=== PATIENT | female | born 2000 | race Caucasian/White ===

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

== ENCOUNTER 2022-01-25 14:24 | Emergency (ER) | payer OTHER ==
[2022-01-25] MEDS ORDERED: SODIUM CHLORIDE 0.9% 1,000 ML IV STA (15:02)
[2022-01-25] MEDS ORDERED: ONDANSETRON 4 MG/2 ML VIAL IVP STA (15:03)
--- NOTE | 2022-01-25 15:03 | ED Physician Documentation ---
History of Present Illness - Stated complaint Stated Complaint: THROAT PX/CONGESTED - Chief complaint Chief Complaint: Heent - History obtained from History obtained from: Patient - History of Present Illness Timing: How many days ago (3) Pain level max: 4 Pain level now: 4 - Additonal information Additional information: Patient is a 21-year-old female who presents to the emergency department complaining of vomiting for the past 3 days. Intermittent headaches as well. Mild abdominal cramping. No diarrhea. Worse with eating and drinking. Nothing makes it better. No urinary symptoms. No vaginal bleeding or discharge. Review of Systems Constitutional: denies: Chills Nose: reports: Rhinorrhea / runny nose. 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 : Chronic bladder infection HEENT: None Psych: None Musculoskeletal: None Derm: None Other Past Medical History: IBS - Past Surgical History Past Surgical History: Yes General: Colonoscopy, EGD - Present Medications Home Medications: Ambulatory Orders Medication Instructions Recorded Confirmed Ondansetron Odt [Zofran] 4 mg TL Q6H PRN #10 tablet 01/25/22 Promethazine [Phenergan] 25 mg PO Q6H PRN #10 tab 01/25/22 - Allergies Allergies/Adverse Reactions: Allergies Allergy/AdvReac Type Severity Reaction Status Date / Time Latex, Natural Rubber Allergy Rash Verified 01/25/22 14:37 - Social History Does the pt smoke?: No Smoking Status: Never smoker Does the pt drink ETOH?: No Does the pt have substance abuse?: No - Immunizations Immunizations are current?: Yes - POLST Patient has POLST: No PD ED PE NORMAL - Vitals Vital signs reviewed: Yes - General General: Alert and oriented X 3, No acute distress, Well developed/nourished - HEENT HEENT: PERRL, Moist mucous membranes, Pharynx benign - Neck Neck: Supple, no meningeal sign - Cardiac Cardiac: RRR, Strong equal pulses - Respiratory Respiratory: No respiratory distress, Clear bilaterally - Abdomen Abdomen: Soft, Non tender, Non distended - Back Back: No spinal TTP - Derm Derm: Warm and dry, No rash - Extremities Extremities: No edema - Neuro Neuro: Alert and oriented X 3 - Psych Psych: Normal mood, Normal affect Results - Vitals Vitals: Vital Signs - 24 hr 01/25/22 01/25/22 14:37 16:49 Temperature 36.6 C 37 C Heart Rate 87 67 Respiratory 18 16 Rate Blood Pressure 129/62 125/57 L O2 Saturation 97 100 Oxygen O2 Source Room air - Labs Labs: Laboratory Tests 01/25/22 01/25/22 01/25/22 14:45 14:45 15:09 WBC 2.7 L RBC 4.44 Hgb 12.2 Hct 36.4 L MCV 82.0 MCH 27.5 MCHC 33.5 RDW 12.9 Plt Count 187 MPV 10.1 Neut # (Auto) Not Reportable Lymph # (Auto) Not Reportable Dukes # (Auto) Not Reportable Eos # (Auto) Not Reportable Baso # (Auto) Not Reportable Absolute Nucleated RBC Not Reportable Total Counted 100 Band Neuts % (Manual) 0 Reactive Lymphs % (Man) 8 Abnorm Lymph % (Manual) 0 Nucleated RBC % Not Reportable Neutrophils # (Manual) 1.5 Lymphocytes # (Manual) 0.7 L Monocytes # (Manual) 0.4 Eosinophils # (Manual) 0.0 Basophils # (Manual) 0.1 Differential Comment MANUAL DIFFERENTIAL WBC Morphology NORMAL APPEARANCE Platelet Estimate NORMAL (130-450,000) Platelet Morphology NORMAL APPEARANCE RBC Morph Micro Appear NORMAL APPEARANCE Sodium Potassium Chloride Carbon Dioxide Anion Gap BUN Creatinine Estimated GFR (MDRD) Glucose Calcium Total Bilirubin AST ALT Alkaline Phosphatase Total Protein Albumin Globulin Albumin/Globulin Ratio Lipase Urine Color Urine Clarity Urine pH Ur Specific [place] Urine Protein Urine Glucose (UA) Urine Ketones Urine Occult Blood Urine Nitrite Urine Bilirubin Urine Urobilinogen Ur Leukocyte Esterase Urine RBC Urine WBC Ur Squamous Epith Cells Amorphous Sediment Urine Bacteria Ur Microscopic Review Urine Culture Comments Urine HCG, Qual Nasal Adenovirus (PCR) NOT DETECTED Nasal B. parapertussis DNA (PCR) NOT DETECTED Nasal Coronavir 229E PCR NOT DETECTED Nasal Coronavir HKU1 PCR NOT DETECTED Nasal Coronavir NL63 PCR NOT DETECTED Nasal Coronavir OC43 PCR NOT DETECTED Nasal Enterovir/Rhinovir PCR DETECTED A Nasal Influenza B PCR NOT DETECTED Nasal Influenza A PCR NOT DETECTED Nasal Parainfluen 1 PCR NOT DETECTED Nasal Parainfluen 2 PCR NOT DETECTED Nasal Parainfluen 3 PCR NOT DETECTED Nasal Parainfluen 4 PCR NOT DETECTED Nasal RSV (PCR) NOT DETECTED Nasal B.pertussis DNA PCR NOT DETECTED Nasal C.pneumoniae (PCR) NOT DETECTED Chin Human Metapneumo PCR NOT DETECTED Nasal M.pneumoniae (PCR) NOT DETECTED Nasal SARS-CoV-2 (PCR) NOT DETECTED Infectious Dukes Assay Group A Strep Rapid Negative 01/25/22 01/25/22 01/25/22 15:09 15:09 16:11 WBC RBC Hgb Hct MCV MCH MCHC RDW Plt Count MPV Neut # (Auto) Lymph # (Auto) Dukes # (Auto) Eos # (Auto) Baso # (Auto) Absolute Nucleated RBC Total Counted Band Neuts % (Manual) Reactive Lymphs % (Man) Abnorm Lymph % (Manual) Nucleated RBC % Neutrophils # (Manual) Lymphocytes # (Manual) Monocytes # (Manual) Eosinophils # (Manual) Basophils # (Manual) Differential Comment WBC Morphology Platelet Estimate Platelet Morphology RBC Morph Micro Appear Sodium 138 Potassium 3.8 Chloride 106 Carbon Dioxide 24 Anion Gap 8.0 BUN 9 Creatinine 0.6 Estimated GFR (MDRD) 129 Glucose 94 Calcium 9.2 Total Bilirubin 0.7 AST 19 ALT 15 Alkaline Phosphatase 61 Total Protein 7.2 Albumin 4.3 Globulin 2.9 Albumin/Globulin Ratio 1.5 Lipase 29 Urine Color YELLOW Urine Clarity CLOUDY Urine pH 7.0 Ur Specific [place] 1.015 Urine Protein NEGATIVE Urine Glucose (UA) NEGATIVE Urine Ketones NEGATIVE Urine Occult Blood SMALL H Urine Nitrite NEGATIVE Urine Bilirubin NEGATIVE Urine Urobilinogen 0.2 (NORMAL) Ur Leukocyte Esterase NEGATIVE Urine RBC 6-10 H Urine WBC 0-3 Ur Squamous Epith Cells FEW Squamous Amorphous Sediment Moderate Urine Bacteria Rare Ur Microscopic Review INDICATED Urine Culture Comments NOT INDICATED Urine HCG, Qual NEGATIVE Nasal Adenovirus (PCR) Nasal B. parapertussis DNA (PCR) Nasal Coronavir 229E PCR Nasal Coronavir HKU1 PCR Nasal Coronavir NL63 PCR Nasal Coronavir OC43 PCR Nasal Enterovir/Rhinovir PCR Nasal Influenza B PCR Nasal Influenza A PCR Nasal Parainfluen 1 PCR Nasal Parainfluen 2 PCR Nasal Parainfluen 3 PCR Nasal Parainfluen 4 PCR Nasal RSV (PCR) Nasal B.pertussis DNA PCR Nasal C.pneumoniae (PCR) Chin Human Metapneumo PCR Nasal M.pneumoniae (PCR) Nasal SARS-CoV-2 (PCR) Infectious Dukes Assay NEGATIVE Group A Strep Rapid PD MEDICAL DECISION MAKING - ED course Complexity details: reviewed results, re-evaluated patient, considered differential, d/w patient, d/w family ED course: 21-year-old female with rhinovirus/enterovirus infection. Patient is very well- appearing, nontoxic. Tolerating p.o. without difficulty. Feels better after IV fluids. We will place on antinausea medication for home. Nausea and vomiting resolved. Abdomen is soft, nontender nondistended on serial examination. Patient counseled regarding signs and symptoms for which I believe and urgent re-evaluation would be necessary. Patient with good understanding of and agreement to plan and is comfortable going home at this time This document was made in part using voice recognition software. While efforts are made to proofread this document, sound alike and grammatical errors may occur. Departure - Departure Disposition: 01 Home, Self Care Clinical Impression: Enterovirus infection, Rhinovirus Vomiting Qualifiers: Vomiting type: unspecified Nausea presence: with nausea Qualified Code(s): R11.2 - Nausea with vomiting, unspecified Condition: Good Instructions: ED Viral Syndrome, ED Nausea Vomiting Follow-Up: your,doctor in 1 week [Other] Prescriptions: Promethazine [Phenergan] 25 mg PO Q6H PRN #10 tab PRN Reason: Nausea / Vomiting Ondansetron Odt [Zofran] 4 mg TL Q6H PRN #10 tablet PRN Reason: Nausea / Vomiting Comments: You have tested positive for rhinovirus/enterovirus today. Please follow-up with your doctor for further care. Drink plenty of fluids and rest. Your prescriptions were sent to [facility] in [place]. Forms: Activity restrictions Discharge Date/Time: 01/25/22 16:50
[2022-01-25 15:09] LABS: RAPID STREP SCREEN Negative (Negative)
[2022-01-25 15:14] LABS: BASOPHILS % (AUTO) 0.7 %; EOSINOPHILS % (AUTO) 1.5 %; HCT - HEMATOCRIT 36.4 % (37.0-47.0); HGB - HEMOGLOBIN 12.2 g/dL (12.0-16.0); LYMPHOCYTES % (AUTO) 27.2 %; MEAN CORPUSCULAR HEMOGLOBIN 27.5 pg (27.0-31.0); MEAN CORPUSCULAR HGB CONC 33.5 g/dL (32.0-36.0); MEAN PLATELET VOLUME 10.1 fL (7.9-10.8); MONOCYTES % (AUTO) 16.8 %; NEUTROPHILS % (AUTO) 53.8 %; PLT - PLATELET COUNT 187 10^3/uL (130-450); RED BLOOD COUNT 4.44 10^6/uL (4.20-5.40); RED CELL DISTRIBUTION WIDTH 12.9 % (12.0-15.0); WHITE BLOOD COUNT 2.7 x10^3/uL (4.8-10.8)
[2022-01-25 15:17] LABS: ABNORMAL LYMPHS % (MANUAL) 0 %; BAND NEUTROPHILS % (MANUAL) 0 %
[2022-01-25 15:28] LABS: ALBUMIN 4.3 g/dL (3.2-5.5); ALBUMIN/GLOBULIN RATIO 1.5 (1.0-2.2); BILIRUBIN,TOTAL 0.7 mg/dL (0.2-1.0); CALCIUM 9.2 mg/dL (8.5-10.3); CREATININE 0.6 mg/dL (0.4-1.0); POTASSIUM 3.8 mmol/L (3.5-5.0); TOTAL PROTEIN 7.2 g/dL (6.7-8.2)
[2022-01-25 15:37] LABS: BASOPHILS # (MANUAL) 0.1 10^3/uL (0-0.1); BASOPHILS % (MANUAL) 5 %; DIFFERENTIAL COMMENT MANUAL DIFFERENTIAL; LYMPHOCYTES # (MANUAL) 0.7 10^3/uL (1.5-3.5); LYMPHOCYTES % (MANUAL) 18 %; MONOCYTES # (MANUAL) 0.4 10^3/uL (0.0-1.0); NEUTROPHILS # (MANUAL) 1.5 10^3/uL (1.5-6.6); PLATELET ESTIMATE, MANUAL NORMAL (130-450,000) (NORMAL); PLATELET MORPHOLOGY NORMAL APPEARANCE (NORMAL); RBC MORPHOLOGY (MULTIPLE) NORMAL APPEARANCE (NORMAL); REACTIVE LYMPHS % (MANUAL) 8 %; WBC MORPHOLOGY (MULTIPLE) NORMAL APPEARANCE (NORMAL)
[2022-01-25 15:50] LABS: INFECTIOUS MONONUCLEOSIS NEGATIVE (Negative)
[2022-01-25 16:03] LABS: B. PARAPERTUSSIS- RESP PCR PAN NOT DETECTED; B. PERTUSSIS- RESP PCR PANEL NOT DETECTED; C. PNEUMONIAE- RESP PCR PANEL NOT DETECTED; CORONAVIRUS 229E-RESP PCR NOT DETECTED; CORONAVIRUS HKU1-RESP PCR NOT DETECTED; CORONAVIRUS NL63-RESP PCR NOT DETECTED; CORONAVIRUS OC43-RESP PCR NOT DETECTED; HUMAN METAPNEUMOVIRUS NOT DETECTED; INFLUENZA A- RESP PCR PANEL NOT DETECTED; INFLUENZA B - RESP PCR PANEL NOT DETECTED; M. PNEUMONIAE- RESP PCR PANEL NOT DETECTED; PARAINFLUENZA VIRUS 1 NOT DETECTED; PARAINFLUENZA VIRUS 2 NOT DETECTED; PARAINFLUENZA VIRUS 3 NOT DETECTED; PARAINFLUENZA VIRUS 4 NOT DETECTED; RHINOVIRUS/ENTEROVIRUS DETECTED; RSV- RESP PCR PANEL NOT DETECTED; SARS-CoV-2 -RESP PCR PANEL NOT DETECTED
[2022-01-25 16:22] LABS: BILIRUBIN,URINE NEGATIVE (NEGATIVE); GLUCOSE, URINE (UA) NEGATIVE (NEGATIVE); KETONES,URINE (UA) NEGATIVE (NEGATIVE); LEUKOCYTE ESTERASE, URINE NEGATIVE (NEGATIVE); NITRITE,URINE NEGATIVE (NEGATIVE); OCCULT BLOOD,URINE SMALL (NEGATIVE); PROTEIN,URINE NEGATIVE (NEGATIVE); UROBILINOGEN,URINE 0.2 (NORMAL) E.U./dL (NORMAL)
[2022-01-25 16:23] LABS: CLARITY,URINE CLOUDY (CLEAR)
[2022-01-25 16:24] LABS: HCG UR QUAL NEGATIVE
[2022-01-25 16:29] LABS: AMORPHOUS SEDIMENT,UR Moderate /LPF; BACTERIA,URINE Rare /HPF (None Seen); SQUAMOUS EPITHELIAL CELL,UR FEW Squamous (<= Few); WBC,URINE 0-3 /HPF (0-5)
[2022-01-25 16:50] VITALS: BP 125/57
== END 2022-01-25 16:50 | disposition home or self-care (01) ==
LOC: ED 14:24
DX: B34.1 Enterovirus infection, unspecified (principal); B34.8 Other viral infections of unspecified site
CPT/HCPCS: 36415; 80053; 81001; 81003; 81025; 83690; 85025; 86308; 87070; 87086; 87430; 87633; 96374; 99282

== ENCOUNTER 2022-02-10 19:11 | Emergency (ER) | payer OTHER ==
[2022-02-10 19:18] VITALS: BP 113/47
--- NOTE | 2022-02-10 19:37 | ED Physician Documentation ---
PD HPI LOWER EXT INJURY - Stated complaint Stated Complaint: BILATERAL LEGS SCRATCH - Chief complaint Chief Complaint: Wound - History obtained from History obtained from: Patient - Additional information Additional information: 22-year-old woman [place], she was in shorts and hike through a lot of bushes. She has burning on both lower extremities where she contacted plants. She does not know specifically what caused it. 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 : Chronic bladder infection HEENT: None Psych: None Musculoskeletal: None Derm: None - Past Surgical History Past Surgical History: Yes General: Colonoscopy, EGD - Present Medications Home Medications: Ambulatory Orders Medication Instructions Recorded Confirmed No Known Home Medications 02/10/22 02/10/22 - Allergies Allergies/Adverse Reactions: Allergies Allergy/AdvReac Type Severity Reaction Status Date / Time Latex, Natural Rubber Allergy Rash Verified 02/10/22 19:18 - Social History Does the pt smoke?: No Smoking Status: Never smoker Does the pt drink ETOH?: No Does the pt have substance abuse?: No - Immunizations Immunizations are current?: Yes - POLST Patient has POLST: No PD ED PE NORMAL - Vitals Vital signs reviewed: Yes - General General: Alert and oriented X 3, No acute distress - Derm Derm: Other (Some inflamed red areas on both legs, not consistent with a contact dermatitis.) - Neuro Neuro: Alert and oriented X 3, Normal speech Results - Vitals Vitals: Vital Signs - 24 hr 02/10/22 19:15 Temperature 36.7 C Heart Rate 92 Respiratory 16 Rate Blood Pressure 113/47 L O2 Saturation 100 Oxygen O2 Source Room air PD MEDICAL DECISION MAKING - ED course ED course: She went hiking in this area and now has inflamed areas on both legs. I showed her pictures of stinging katarina which are really the only thing around here that can do this and she identified them as the inciting agent likely. Discussed with her the natural Course and conservative treatment of this given that it is not a contact dermatitis. She declined Analgesia. Departure - Departure Disposition: 01 Home, Self Care Clinical Impression: Nettle sting Condition: Good Record reviewed to determine appropriate education?: Yes Comments: As discussed, this is most consistent with stinging katarina, a common plant that grows around here. Learn to identify it so you can avoid it on future hikes. Thankfully, unlike poison oak/poison argenis this is not a contact dermatitis so goes away much faster. Conservative care with cool compresses and calamine lotion are appropriate. Return for new or worsening symptoms.
== END 2022-02-10 19:41 | disposition home or self-care (01) ==
LOC: ED 19:11
DX: M79.662 Pain in left lower leg (principal); M79.661 Pain in right lower leg; T63.791A Toxic effect of contact with other venomous plant, accidental (unintentional), initial encounter
CPT/HCPCS: 99281; 99282

== ENCOUNTER 2022-04-11 04:22 | Emergency (ER) | payer OTHER ==
[2022-04-11] MEDS ORDERED: ONDANSETRON 4 MG/2 ML VIAL IM STA (04:45)
--- NOTE | 2022-04-11 04:51 | ED Physician Documentation ---
History of Present Illness - Stated complaint Stated Complaint: N/V/D, COUGH - Chief complaint Chief Complaint: General - History obtained from History obtained from: Patient - Additonal information Additional information: The patient comes to the emergency department with chief complaint of vomiting for 3 weeks. She states that she was first ago March 19 as. She at that time had a runny nose and cough and a little bit of a chill and also a couple days later, began to have nausea and vomiting. The patient states that got a little better after that but then seemed to worsen again. The patient states she will get what feels like a migraine at the base of her skull and then pain shoots down her neck into her chest and makes her throat feel tight. She then vomits. The patient denies a history of migraines. No head injuries. No neurologic symptoms. The patient does note that she is also had her second. In the last 2 and half weeks. She states she had a period from March 24 to March 31. She states that she then started bleeding again couple of days ago. 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 She also has not attempted to make any contact with her primary care physician. 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 Review of Systems Ten Systems: 10 systems reviewed and negative Constitutional: reports: Reviewed and negative Eyes: reports: Reviewed and negative Ears: reports: Reviewed and negative Nose: reports: Congestion Throat: reports: Reviewed and negative Cardiac: reports: Reviewed and negative Respiratory: reports: Cough GI: reports: Nausea, Vomiting, Diarrhea : reports: Reviewed and negative Skin: reports: Reviewed and negative Musculoskeletal: reports: Reviewed and negative Neurologic: reports: Reviewed and negative Psychiatric: reports: Reviewed and negative Endocrine: reports: Reviewed and negative Immunocompromised: reports: Reviewed and negative PD PAST MEDICAL HISTORY - Past Medical History Cardiovascular: None Respiratory: None Neuro: None Endocrine/Autoimmune: None 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 : Chronic bladder infection HEENT: None Psych: None Musculoskeletal: None Derm: None - Past Surgical History Past Surgical History: Yes General: Colonoscopy, EGD - Present Medications Home Medications: Ambulatory Orders Medication Instructions Recorded Confirmed Ferrous Sulfate [Feosol] 650 mg PO DAILY 04/11/22 04/11/22 Ondansetron Odt [Zofran] 4 mg TL Q6H PRN #10 tablet 12/13/22 - Allergies Allergies/Adverse Reactions: Allergies Allergy/AdvReac Type Severity Reaction Status Date / Time Latex, Natural Rubber Allergy Rash Verified 04/11/22 04:29 - Social History Does the pt smoke?: No Smoking Status: Never smoker Does the pt drink ETOH?: No Does the pt have substance abuse?: No - Immunizations Immunizations are current?: Yes - POLST Patient has POLST: No PD ED PE NORMAL - Vitals Vital signs reviewed: Yes - General General: Alert and oriented X 3, No acute distress, Well developed/nourished - HEENT HEENT: Atraumatic, PERRL, EOMI, Moist mucous membranes - Neck Neck: Supple, no meningeal sign - Cardiac Cardiac: RRR, No murmur, Strong equal pulses - Respiratory Respiratory: No respiratory distress, Clear bilaterally - Abdomen Abdomen: Soft, Non tender, Non distended - Derm Derm: Normal color, Warm and dry, No rash - Extremities Extremities: No deformity, No edema - Neuro Neuro: Alert and oriented X 3 - Psych Psych: Normal mood, Normal affect Results - Vitals Vitals: Vital Signs - 24 hr 04/11/22 04/11/22 04:25 05:07 Temperature 36.9 C Heart Rate 93 63 Respiratory 18 18 Rate Blood Pressure 123/71 119/68 O2 Saturation 98 98 Oxygen O2 Source Room air - Labs Labs: Laboratory Tests 04/11/22 04/11/22 04:42 05:02 Sodium 135 Potassium 4.0 Chloride 102 Carbon Dioxide 26 Anion Gap 7.0 BUN 10 Creatinine 0.6 Estimated GFR (MDRD) 127 Glucose 98 Calcium 9.2 Nasal Adenovirus (PCR) NOT DETECTED Nasal B. parapertussis DNA (PCR) NOT DETECTED Nasal Coronavir 229E PCR NOT DETECTED Nasal Coronavir HKU1 PCR NOT DETECTED Nasal Coronavir NL63 PCR NOT DETECTED Nasal Coronavir OC43 PCR NOT DETECTED Nasal Enterovir/Rhinovir PCR NOT DETECTED Nasal Influenza A H3 PCR DETECTED A Nasal Influenza B PCR NOT DETECTED Nasal Influenza A PCR NOT DETECTED Nasal Parainfluen 1 PCR NOT DETECTED Nasal Parainfluen 2 PCR NOT DETECTED Nasal Parainfluen 3 PCR NOT DETECTED Nasal Parainfluen 4 PCR NOT DETECTED Nasal RSV (PCR) NOT DETECTED Nasal B.pertussis DNA PCR NOT DETECTED Nasal C.pneumoniae (PCR) NOT DETECTED Chin Human Metapneumo PCR NOT DETECTED Nasal M.pneumoniae (PCR) NOT DETECTED Nasal SARS-CoV-2 (PCR) NOT DETECTED PD MEDICAL DECISION MAKING - ED course Complexity details: reviewed results, re-evaluated patient, considered differential, d/w patient ED course: The patient was worked up with a BMP, which was unremarkable, and a viral panel, which ultimately showed influenza A. She was treated symptomatically with Zofran and given a prescription for the same. We have discussed symptomatic management at home, and the need for follow-up for her dysfunctional uterine bleeding. We have discussed the usual indications for return. Departure - Departure Disposition: Home, Self Care Clinical Impression: Dysfunctional uterine bleeding Headache Qualifiers: Headache type: unspecified Headache chronicity pattern: episodic headache Intractability: not intractable Qualified Code(s): R51.9 - Headache, unspecified Vomiting Qualifiers: Vomiting type: bilious vomiting Nausea presence: with nausea Qualified Code(s): R11.14 - Bilious vomiting Condition: Stable Instructions: ED Bleed Irregular Vaginal, ED Nausea Vomiting Prescriptions: Ondansetron Odt [Zofran] 4 mg TL Q6H PRN #10 tablet PRN Reason: Nausea / Vomiting Comments: The prescription for your nausea medication has been electronically transmitted to [facility] pharmacy in [place]. Please follow-up with your doctor regarding your ongoing nausea and vomiting, as well as the dysfunctional uterine bleeding.. Discharge Date/Time: 04/11/22 05:07
[2022-04-11 05:08] VITALS: BP 119/68
[2022-04-11 05:19] LABS: CALCIUM 9.2 mg/dL (8.5-10.3); CREATININE 0.6 mg/dL (0.4-1.0)
[2022-04-11 05:42] LABS: B. PARAPERTUSSIS- RESP PCR PAN NOT DETECTED; B. PERTUSSIS- RESP PCR PANEL NOT DETECTED; C. PNEUMONIAE- RESP PCR PANEL NOT DETECTED; CORONAVIRUS 229E-RESP PCR NOT DETECTED; CORONAVIRUS HKU1-RESP PCR NOT DETECTED; CORONAVIRUS NL63-RESP PCR NOT DETECTED; CORONAVIRUS OC43-RESP PCR NOT DETECTED; HUMAN METAPNEUMOVIRUS NOT DETECTED; INFLUENZA A H3- RESP PCR PANEL DETECTED; INFLUENZA A- RESP PCR PANEL NOT DETECTED; INFLUENZA B - RESP PCR PANEL NOT DETECTED; M. PNEUMONIAE- RESP PCR PANEL NOT DETECTED; PARAINFLUENZA VIRUS 1 NOT DETECTED; PARAINFLUENZA VIRUS 2 NOT DETECTED; PARAINFLUENZA VIRUS 3 NOT DETECTED; PARAINFLUENZA VIRUS 4 NOT DETECTED; RHINOVIRUS/ENTEROVIRUS NOT DETECTED; RSV- RESP PCR PANEL NOT DETECTED; SARS-CoV-2 -RESP PCR PANEL NOT DETECTED
== END 2022-04-11 05:07 | disposition home or self-care (01) ==
LOC: ED 04:22
DX: J10.1 Influenza due to other identified influenza virus with other respiratory manifestations (principal); N93.8 Other specified abnormal uterine and vaginal bleeding; R51.9 Headache, unspecified; R11.14 Bilious vomiting; Z20.822 Contact with and (suspected) exposure to COVID-19
CPT/HCPCS: 36415; 80048; 87633; 96372; 99282; 99283

== ENCOUNTER 2022-07-12 23:41 | Emergency (ER) | payer OTHER ==
[2022-07-13 00:42] VITALS: BP 115/69
--- NOTE | 2022-07-13 01:06 | ED Physician Documentation ---
History of Present Illness - Stated complaint Stated Complaint: NEEDS COVID TEST; N/V - Chief complaint Chief Complaint: Abd Pain - Additonal information Additional information: Patient 22-year-old female presenting to the emergency department with nausea, vomiting and requesting COVID screening. Had 2 episodes nausea vomiting earlier this evening. Left work early and was told to come to the emergency department for COVID screening. Currently reports feeling well. Denies abdominal pain. Denies any concerns for . Otherwise denies for fever, chills, chest pain, shortness of breath, diarrhea, constipation, new rash, new we akness/numbness/tingling in any extremity. Review of Systems Constitutional: denies: Fever Eyes: denies: Loss of vision Ears: denies: Loss of hearing Nose: denies: Rhinorrhea / runny nose Throat: denies: Dental pain / toothache Cardiac: denies: Chest pain / pressure Respiratory: denies: Dyspnea GI: reports: Nausea, Vomiting. 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: No Does the pt have substance abuse?: No - Immunizations Immunizations are current?: Yes - POLST Patient has POLST: No PD ED PE NORMAL - General General: Alert and oriented X 3 - HEENT HEENT: Atraumatic - Neck Neck: Supple, no meningeal sign - Respiratory Respiratory: No respiratory distress - Rectal Rectal: Deferred - Extremities Extremities: No deformity - Neuro Neuro: Alert and oriented X 3, green marketing specialist 2-12 intact, No motor deficit, No sensory deficit, Normal speech Results - Vitals Vitals: Vital Signs - 24 hr 07/13/22 00:39 Temperature 36.8 C Heart Rate 82 Respiratory 14 Rate Blood Pressure 115/69 O2 Saturation 98 Oxygen O2 Source Room air PD Medical Decision Making - ED course Complexity details: d/w patient ED course: Patient 22-year-old female coming to the emergency department for COVID screening after having nausea vomiting earlier this evening. Reported feeling well. Denied acute complaints. Was given starter pack ondansetron for any ongoing nausea vomiting. She declined physical exam or other interventions in the emergency department. Did not appear to be in any distress. Routine COVID swab is taken and she will follow-up with her MyChart or contact us for results when they are available. Departure - Departure Disposition: 01 Home, Self Care Clinical Impression: Encounter for screening for COVID-19 Nausea and vomiting Qualifiers: Vomiting type: unspecified Qualified Code(s): R11.2 - Nausea with vomiting, unspecified Instructions: ED Nausea Vomiting Comments: Thank you for allowing us to care for at [facility]. Your COVID screening test will be available in the next 1 to 2 days. Please follow-up with your primary care doctor as needed. If it anytime you have new or worsening symptoms please not hesitate to return..
[2022-07-13] MEDS: ONDANSETRON ODT 4 MG Prepack 2 TL PRN (01:13)
== END 2022-07-13 01:15 | disposition home or self-care (01) ==
LOC: ED 23:41
DX: R11.2 Nausea with vomiting, unspecified (principal); Z20.822 Contact with and (suspected) exposure to COVID-19
CPT/HCPCS: 99282; 99283

== ENCOUNTER 2022-11-09 08:19 | Outpatient (CLI) | payer OTHER ==
[2022-11-14 06:10] LABS: DOPAMINE PLASMA <30 pg/mL (0-48); EPINEPHRINE PLASMA <15 pg/mL (0-62); NOREPINEPHRINE PLASMA 301 pg/mL (0-874)
== END 2022-11-09 08:20 | disposition home or self-care (01) ==
LOC: LAB.N 08:19
PROVIDERS: ATTEND Internal Medicine Cardiovascular Disease
DX: R55 Syncope and collapse (principal)
CPT/HCPCS: 36415; 82384; 82533

== ENCOUNTER 2023-03-10 08:00 | Outpatient (CLI) | payer OTHER | END 2023-03-10 23:59 | disposition home or self-care (01) | LOC: LAB.N 08:00 | PROVIDERS: ATTEND Physician Assistant Medical | DX: R30.0 Dysuria (principal) | CPT/HCPCS: 87086 ==

== ENCOUNTER 2023-03-24 08:00 | Outpatient (CLI) | payer OTHER ==
[2023-03-24 21:34] LABS: CHLAMYDIA TRACHOMATIS DNA NEGATIVE (NEGATIVE); NEISSERIA GONORRHOEAE DNA NEGATIVE (NEGATIVE)
[2023-03-24 22:25] LABS: BACTERIAL VAGINOSIS DNA NEGATIVE (NEGATIVE); CANDIDA GLABRATA DNA NEGATIVE (NEGATIVE); CANDIDA GROUP DNA NEGATIVE (NEGATIVE); CANDIDA KRUSEI DNA NEGATIVE (NEGATIVE); TRICHOMONAS VAGINALIS DNA NEGATIVE (NEGATIVE)
== END 2023-03-24 23:59 | disposition home or self-care (01) ==
LOC: LAB.N 08:00
PROVIDERS: ATTEND Physician Assistant Medical
DX: R30.0 Dysuria (principal)
CPT/HCPCS: 81514; 87086; 87491; 87591; 87661

== ENCOUNTER 2023-03-28 15:32 | Emergency (ER) | payer OTHER ==
[2023-03-28 15:50] VITALS: BP 142/83; O2SAT 100
--- NOTE | 2023-03-28 15:50 | ED Physician Documentation ---
History of Present Illness - Stated complaint Stated Complaint: - Additonal information Additional information: 23-year-old female presents emergency department for evaluation of persistent dysuria, urgency and frequency. Patient reports that her symptoms began about 2 weeks ago. She has been seen at the [facility]. Was started on Macrobid on the with no change in symptoms. In review of the chart a urine culture on 10 March grew polymicrobial skin growth and on the the urine culture showed diphtheroid gram-positive bacilli. Sensitivities were not indicated. Patient is denying fevers, flank pain or vomiting. STI screening completed on the was negative. Denies possibility of . 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: No Smoking Status: Never smoker Does the pt drink ETOH?: No Does the pt have substance abuse?: No - Immunizations Immunizations are current?: Yes - POLST Patient has POLST: No PD ED PE NORMAL - General General: Alert and oriented X 3, No acute distress - HEENT HEENT: Atraumatic - Neck Neck: Supple, no meningeal sign - Cardiac Cardiac: RRR, No murmur - Respiratory Respiratory: No respiratory distress - Abdomen Abdomen: Normal bowel sounds, Soft, Non tender - Back Back: No CVA TTP - Derm Derm: Normal color, Warm and dry, No rash - Extremities Extremities: No deformity - Neuro Neuro: Alert and oriented X 3 Results - Vitals Vitals: Vital Signs - 24 hr 03/28/23 15:37 Temperature 36.8 C Heart Rate 84 Respiratory 16 Rate Blood Pressure 142/83 H O2 Saturation 100 Oxygen O2 Source Room air - Labs Labs: Laboratory Tests 03/28/23 15:45 Urine Color YELLOW Urine Clarity CLEAR Urine pH 6.0 Ur Specific [place] 1.025 Urine Protein NEGATIVE Urine Glucose (UA) NEGATIVE Urine Ketones NEGATIVE Urine Occult Blood SMALL H Urine Nitrite NEGATIVE Urine Bilirubin NEGATIVE Urine Urobilinogen 0.2 (NORMAL) Ur Leukocyte Esterase NEGATIVE Urine RBC 6-10 H Urine WBC 0-3 Ur Squamous Epith Cells FEW Squamous Urine Bacteria Moderate H Ur Microscopic Review INDICATED Urine Culture Comments NOT INDICATED Urine HCG, Qual NEGATIVE PD Medical Decision Making - ED course Complexity details: reviewed results, re-evaluated patient, d/w patient ED course: 23-year-old female here for several weeks of dysuria urgency and frequency. Previous cultures have grown likely skin contaminant. STI screening is negative. However she has symptoms quite suggestive of urinary infection. Currently on Macrobid without resolution. Urine today shows bacteria but no other markers of infection. A culture is pending but I will transition her to Vantin. She was also started on Pyridium. There was no abdominal pain flank pain or fevers to suggest a sending infection. However given her history of recurrent urinary symptoms I would recommend referral to urology and have advised the patient of this. Otherwise the usual emergent return precautions for worsening symptoms was discussed. Departure - Departure Disposition: 01 Home, Self Care Clinical Impression: Dysuria Prescriptions: Phenazopyridine HCl [Pyridium] 200 mg PO TID PRN #6 tablet PRN Reason: dysuria Cefpodoxime Proxetil [Vantin] 100 mg PO Q12H #14 tablet Comments: Your urine today has some bacteria in it but no other markers to suggest infection. We are sending it for culture. However as your symptoms are quite suggestive of infection and the Macrobid has not improved your urinary symptoms we will start you on a new antibiotic called Vantin. You will take it twice da mohini for the next week. I have also prescribed Pyridium. This is a medication that helps reduce bladder spasm and improve pain and urinary infections. It will turn your urine bright orange. With the new antibiotic I would expect improved symptoms over the next 24 to 48 hours. If not markedly improving then please return to the ER. However given your history of recurrent urinary symptoms without obvious infection I think it is important that you follow closely with a urologist and I would recommend [facility] make the referral for you as soon as possible.
[2023-03-28 15:54] LABS: BILIRUBIN,URINE NEGATIVE (NEGATIVE); GLUCOSE, URINE (UA) NEGATIVE (NEGATIVE); KETONES,URINE (UA) NEGATIVE (NEGATIVE); LEUKOCYTE ESTERASE, URINE NEGATIVE (NEGATIVE); NITRITE,URINE NEGATIVE (NEGATIVE); OCCULT BLOOD,URINE SMALL (NEGATIVE); PROTEIN,URINE NEGATIVE (NEGATIVE); UROBILINOGEN,URINE 0.2 (NORMAL) E.U./dL (NORMAL)
[2023-03-28 15:56] LABS: CLARITY,URINE CLEAR (CLEAR); HCG UR QUAL NEGATIVE
[2023-03-28] MEDS ORDERED: CEFPODOXIME PROXETIL 100 MG TABLET PO STA (16:20)
[2023-03-28 16:32] LABS: BACTERIA,URINE Moderate /HPF (None Seen); SQUAMOUS EPITHELIAL CELL,UR FEW Squamous (<= Few); WBC,URINE 0-3 /HPF (0-5)
[2023-03-28] MEDS ORDERED: ONDANSETRON ODT 4 MG TABLET TL STA (16:37)
== END 2023-03-28 17:26 | disposition home or self-care (01) ==
LOC: ED 15:32
DX: R30.0 Dysuria (principal)
CPT/HCPCS: 81001; 81025; 87086; 99283; A9270; 81003

== ENCOUNTER 2023-03-31 21:57 | Emergency (ER) | payer OTHER ==
[2023-03-31 22:39] LABS: BILIRUBIN,URINE NEGATIVE (NEGATIVE); GLUCOSE, URINE (UA) NEGATIVE (NEGATIVE); KETONES,URINE (UA) NEGATIVE (NEGATIVE); LEUKOCYTE ESTERASE, URINE NEGATIVE (NEGATIVE); NITRITE,URINE NEGATIVE (NEGATIVE); OCCULT BLOOD,URINE TRACE-INTA (NEGATIVE); PROTEIN,URINE NEGATIVE (NEGATIVE); UROBILINOGEN,URINE 0.2 (NORMAL) E.U./dL (NORMAL)
[2023-03-31 22:40] LABS: CLARITY,URINE CLEAR (CLEAR); HCG UR QUAL NEGATIVE
--- NOTE | 2023-03-31 23:20 | ED Physician Documentation ---
PD HPI FEMALE - Stated complaint Stated Complaint: CRAMPING/LOWER BACK PX - Chief complaint Chief Complaint: Abd Pain - History obtained from History obtained from: Patient - Additional information Additional information: Patient is a 23 -year-old female presenting for evaluation of several weeks of having UTI symptoms of dysuria, frequency and urgency. She has been at to the walk-in clinic twice as well as to the emergency department. She is currently in the middle of a course of antibiotics and has already completed another course of antibiotics without any improvement in her symptoms. She [facility] as she was told she may need a urology referral but could not get through it and thus has come back to the emergency department.She reports having some white to yellow vaginal discharge. Denies concerns for STIs. Denies concerns for . Nothing makes her symptoms better or worse. No fevers. No chest pain, shortness of air, nausea v omiting. 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: No Smoking Status: Never smoker Does the pt drink ETOH?: No Does the pt have substance abuse?: No - Immunizations Immunizations are current?: Yes - POLST Patient has POLST: No PD ED PE NORMAL - General General: Alert and oriented X 3, No acute distress, Well developed/nourished - HEENT HEENT: Atraumatic - Neck Neck: Supple, no meningeal sign - Cardiac Cardiac: RRR - Respiratory Respiratory: No respiratory distress, Clear bilaterally - Abdomen Abdomen: Normal bowel sounds, Soft, Non tender, Non distended - Back Back: No CVA TTP - Neuro Neuro: Normal speech Results - Vitals Vitals: Vital Signs - 24 hr 03/31/23 03/31/23 03/31/23 22:04 22:53 23:33 Temperature 36.8 C Heart Rate 84 90 87 Respiratory 16 18 22 Rate Blood Pressure 118/89 H 116/56 L 104/60 O2 Saturation 100 100 98 Oxygen O2 Source Room air - Labs Labs: Laboratory Tests 03/31/23 03/31/23 22:30 22:30 Urine Color YELLOW Urine Clarity CLEAR Urine pH 6.0 Ur Specific [place] 1.025 Urine Protein NEGATIVE Urine Glucose (UA) NEGATIVE Urine Ketones NEGATIVE Urine Occult Blood TRACE-INTA Urine Nitrite NEGATIVE Urine Bilirubin NEGATIVE Urine Urobilinogen 0.2 (NORMAL) Ur Leukocyte Esterase NEGATIVE Ur Microscopic Review NOT INDICATED Urine Culture Comments NOT INDICATED Urine HCG, Qual NEGATIVE Chlam trachomat DNA PCR NEGATIVE N.gonorrhoeae DNA (PCR) NEGATIVE T. vaginalis (PCR) TNP PD Medical Decision Making - ED course Complexity details: reviewed results, re-evaluated patient, d/w patient ED course: Patient with several weeks of feeling urinary frequency, dysuria and urgency without improvement on trial of antibiotics. Patient has had negative urine cultures. Urine here is unremarkable. No significant tenderness elicited on exam. Bladder scan is negative for findings of urinary retention. Vaginal swabs were obtained and are pending. Patient counseled on need for close follow-up with PCM and may need referral to specialist if symptoms or not improving. Patient also aware that we will notify her of any abnormal results in regards to the vaginal swabs. Departure - Departure Disposition: 01 Home, Self Care Clinical Impression: Urinary frequency Condition: Stable Instructions: ED Dysuria Uncertain Cause Follow-Up: JANICE Mann [Provider Group] Comments: We have sent a swabs from the vagina to be checked at the lab for infection. We will notify you of any abnormal results. If these do not show any infection then the exact source for your symptoms remains unclear and I would recommend close follow-up with your primary care provider as you may need further testing or referral to a specialist like a urologist. In the meanwhile would recommend continuing with antibiotics that you have already been prescribed. Forms: PCP List Discharge Date/Time: 03/31/23:33
[2023-03-31 23:36] VITALS: BP 104/60; O2SAT 98
[2023-04-01 00:57] LABS: CHLAMYDIA TRACHOMATIS DNA NEGATIVE (NEGATIVE); NEISSERIA GONORRHOEAE DNA NEGATIVE (NEGATIVE)
[2023-04-01 08:40] LABS: BACTERIAL VAGINOSIS DNA NEGATIVE (NEGATIVE); CANDIDA GLABRATA DNA NEGATIVE (NEGATIVE); CANDIDA GROUP DNA NEGATIVE (NEGATIVE); CANDIDA KRUSEI DNA NEGATIVE (NEGATIVE); TRICHOMONAS VAGINALIS DNA NEGATIVE (NEGATIVE)
== END 2023-03-31 23:33 | disposition home or self-care (01) ==
LOC: ED 21:57
DX: R35.0 Frequency of micturition (principal); M54.50 Low back pain, unspecified; R30.0 Dysuria
CPT/HCPCS: 51798; 81001; 81003; 81025; 81514; 87086; 87491; 87591; 87661; 99283

== ENCOUNTER 2023-05-14 07:14 | Outpatient (CLI) | payer OTHER ==
--- NOTE | 2023-05-15 19:26 | Ultrasound Report ---
PROCEDURE: Renal (Retroperitoneal) INDICATIONS: UTI TECHNIQUE: Real-time scanning was performed of the retroperitoneal organs, with image documentation. COMPARISON: None. FINDINGS: Kidneys: Kidneys are normal in size. Right kidney measures 11.6 cm long; left kidney measures 1.0 c m long. Right renal cortical thickness is 1.0 cm; left renal cortical thickness is 1.0 cm. No solid masses, hydronephrosis, or nephrolithiasis. Bladder: Pre-void bladder volume is 398 mL. Post-void residual is 18 mL. Pre-void images demonstra te no intraluminal masses or stones. On pre-void images, bilateral ureteral jets are noted with colo r Doppler interrogation. (Of note, ureteral jets may not be detectable in up to 25% of cases due to insufficient differences in specific gravity between ureteral and bladder urine). Miscellaneous: No free abdominal fluid. Hepatic steatosis. IMPRESSION: Unremarkable exam noting hepatic steatosis. Reviewed by: Loyda Duffy MD on 05/15/2023 7:25 PM PST Approved by: Loyda Duffy MD on 05/15/2023 7:25 PM PST Station ID: [id number]
== END 2023-05-14 07:15 | disposition home or self-care (01) ==
LOC: DI 07:14
PROVIDERS: ATTEND Urology
DX: K76.0 Fatty (change of) liver, not elsewhere classified (principal); N39.0 Urinary tract infection, site not specified